=== PATIENT | male | born 1970 | race Caucasian/White ===

== ENCOUNTER 2017-09-08 07:06 | Day surgery (SDC) | payer OTHER ==
[~2017-09-08] VITALS: Ht 175.3 cm; Wt 79.3 kg
[~2017-09-08 07:06] MED LIST: NEXIUM20 MG PO
[2017-09-08 07:47] VITALS: BP 115/77
[2017-09-08] MEDS ORDERED: NORCO 5/3251 TABLET PO (10:21)
[2017-09-08 11:45] VITALS: BP 114/76
[2017-09-08 12:45] VITALS: BP 106/68
== END 2017-09-08 13:00 | disposition home or self-care (01) ==
LOC: SDC 07:06
PROC: 0YU60JZ Supplement Left Inguinal Region with Synthetic Substitute, Open Approach (ICD-10-PCS; principal; 2017-09-08)
DX: K40.90 Unilateral inguinal hernia, without obstruction or gangrene, not specified as recurrent (principal); K21.9 Gastro-esophageal reflux disease without esophagitis; K44.9 Diaphragmatic hernia without obstruction or gangrene
CPT/HCPCS: C1781; J0131; J0690; J1100; J1885; J2250; J2405; J3010